=== PATIENT | female | born 1950 | race Caucasian/White ===

== ENCOUNTER 2022-11-06 09:33 | Outpatient (REF) | payer MEDICARE, BC, SELFPAY ==
--- NOTE | ~2022-11-06 | CT_ITS ---
EXAMINATION: CT HEAD WITHOUT CONTRAST CLINICAL INFORMATION: Parkinson's disease COMPARISON: None available. TECHNIQUE: Contiguous axial imaging was performed from the skull base to vertex without intravenous administration of contrast. This CT examination was performed using dose optimization techniques as appropriate, variously including the following: *Automated exposure control *Adjustment of mA and/or kV according to patient size (this includes techniques or standardized protocols for targeted exams where dose is matched to indication/reason for exam; i.e. extremities or head) *Use of iterative reconstruction technique DLP: 836 mGy-cm FINDINGS: There is no acute intra-axial, extra-axial bleed, masses or midline shift. There is no acute infarction in evolution. There is no edema. The beard to white matter difference is maintained. The lateral ventricles are symmetrical in size and configuration without enlargement. Bone windows reveal no calvarial abnormality. CT/CT head/brain wo IV con IMPRESSION: No acute intracranial and process seen.
== END 2022-11-06 09:34 | disposition home or self-care (01) ==
LOC: HO.CT 09:33
PROVIDERS: Visit Provider Internal Medicine
DX: G20 Parkinson's disease (principal)
CPT/HCPCS: 70450

== ENCOUNTER 2025-03-10 11:36 | Outpatient (AMB) | payer MEDICARE, SELFPAY ==
--- NOTE | 2025-03-10 11:45 | MHC.OFFVIS ---
Intake Visit Reasons: 6 month Allergies ampicillin (AMPICILLIN) Allergy (Mild, Unverified 03/23/20 15:28) RASH acetaminophen (From PERCOCET) Adverse Reaction (Mild, Unverified 03/23/20 15:28) nausea From PERCOCET Adverse Reaction (Mild, Uncoded 03/23/20 15:28) nausea HPI Comments Details: 74 yo woman with Parkinson disease started in 2019 with bilateral hand tremor and bradykinesia. She is presenting for comprehensive management related to her primary diagnosis of Parkinson's Disease. Her current treatment includes carbidopa/levodopa and pramipexole, though administration of carbidopa/levodopa is slightly less frequent than intended. Hallucinations present at nighttime involve sensations of dropping objects, and overall, night sleep is satisfactory. She finds daytime somnolence a challenge, being troublesome to her daily activities, potentially attributed to her medication regimen. There is a chronic history of left eye ptosis, treated previously with costly eye drops which were therefore discontinued. [facility], [facility] Medical History (Updated 03/10/25 @ 11:46 by Noe Cordero MD) Parkinson disease Multifactorial gait disorder Obesity Osteoarthritis Parkinsonism Anxiety Hypertension Degenerative disc disease, lumbar Review of Systems Const Details: - Neurologic: Reports falling asleep during the day, mild hallucinations during sleep; Denies anger issues or excessive mood changes. - Musculoskeletal: Reports leg swelling. - Sleep: Reports good sleep at night but excessive daytime sleepiness; Denies snoring. Physical Exam Neuro Other: She is alert and awake with normal spontaneity of speech fluency comprehension and affect. There was moderate left-sided ptosis. There was moderate bilateral leg edema. Assessment & Plan Assessment & Plan (1) Parkinson disease: Comment: [place] brain [place] [facility] [place]: [place] MRI LS spine at [facility] in 2021: multilevel DJD. Code(s): G20.A1 - Parkinson's disease without dyskinesia, without mention of fluctuations Category: Medical Qualifiers: Dyskinesia presence: without dyskinesia Fluctuating manifestations: with fluctuating manifestations Qualified Code(s): G20.A2 - Parkinson's disease without dyskinesia, with fluctuations Plan Impression: a: Parkinson disease b: mild benign sleep related hallucinations c: Left eye chronic ptosis d: Hypersomnia during daytime probably with underlying untreated PHYLLIS. She did not want to use a mask e: Leg edema that might be due to pramipaxole Rec: a: Carbidopa/levodopa 25/100, 4-5 times a day b: DC pramipaxole Medications: Changed From carbidopa-levodopa 25-100 mg (Sinemet) 1 tab PO QID 360 tabs 1RF To carbidopa-levodopa 25-100 mg (Sinemet) 1 tab orally 4-5 times a day; 450 tabs 1RF Coding Level of Care Code Est Pt Level 5 (84649) Diagnoses Parkinson's disease without dyskinesia, with fluctuating manifestations G20.A2 Dyskinesia presence: without dyskinesia Fluctuating manifestations: with fluctuating manifestations
--- OUTSIDE RECORDS SUMMARY | 2025-03-10 13:17 | XMS_ITS | Clinical Summary ---
Author Organization [facility] Address [address] [place] [address] Care Team Providers Care Bending Shed Worker Name Role Phone Debra Hauser MD Primary Care Provider [phone] Allergies Active Allergy Reactions Criticality Noted Date Comments Ampicillin 09/01/2023 Iodinated Contrast Media 09/01/2023 Medications Medication Sig Dispensed Refills Start Date End Date Status acetaminophen (TYLENOL EXTRA STRENGTH) 500 MG tablet Take 1 tablet (500 mg total) by mouth every 6 (six) hours as needed. 0 Active acetaminophen-codeine (TYLENOL #3) 300-30 MG per tablet Take 1 tablet by mouth daily. 0 Active carbidopa-levodopa (SINEMET) 25-100 MG per tablet Take 2 tablets by mouth 2 (two) times a day. 0 Active polyethylene glycol (MIRALAX) 17 g packet Take 17 g by mouth daily. 0 Active hydroCHLOROthiazide (HYDRODIURIL) tablet 25 mg Take 1 tablet (25 mg total) by mouth daily. 0 Active lisinopril (PRINIVIL,ZESTRIL) tablet 20 mg Take 1 tablet (20 mg total) by mouth daily. 0 Active Multiple Vitamins-Minerals (Multivitamin Women 50+) TABS Take 1 tablet by mouth daily. 0 Active omeprazole (PriLOSEC) 20 MG capsule Take 1 capsule (20 mg total) by mouth daily. 0 Active pregabalin (LYRICA) 75 MG capsule Take 1 capsule (75 mg total) by mouth 2 (two) times a day. 0 Active senna-docusate (PERICOLACE) 8.6-50 MG Take 1 tablet by mouth daily. 0 Active sertraline (ZOLOFT) 50 MG tablet Take 1.5 tablets (75 mg total) by mouth daily. 0 Active simvastatin (ZOCOR) tablet 20 mg Take 1 tablet (20 mg total) by mouth every night at bedtime. 0 Active Cholecalciferol (Vitamin D) 50 MCG (1999 UT) CAPS Take 1 capsule by mouth daily. 0 Active trospium (SANCTURA) 20 MG tablet Take 1 tablet (20 mg total) by mouth 2 (two) times a day. 0 Active Family History Medical History Relation Name Comments Cancer Mother Relation Name Status Comments Mother Social History Tobacco Use Types Packs/Day Years Used Date Smoking Tobacco: Never Smokeless Tobacco: Never Tobacco Cessation:Counseling Given: Not Answered Alcohol Use Standard Drinks/Week Comments Not Currently 0 (1 standard drink = 0.6 oz pur e alcohol) Sex and Gender Information Value Date Recorded Sex Assigned at Not on file Gender Identity Not on file Sexual Orientation Not on file Job Start Date Occupation Industry Not on file Not on file Not on file Last Filed Vital Signs Vital Sign Reading Time Taken Comments Blood Pressure 146/58 09/01/2023 11:39 AM EST Pulse 75 09/01/2023 11:39 AM EST Temperature 36.6 C (97.8 F) 09/01/2023 11:39 AM EST Respiratory Rate - - Oxygen Saturation 100% 09/01/2023 11:39 AM EST Inhaled Oxygen Concentration - - Weight 92.1 kg (203 lb) 09/01/2023 11:39 AM EST Height 162.6 cm (5' 4 ) 09/01/2023 11:39 AM EST Body Mass Index 34.84 09/01/2023 11:39 AM EST Plan of Treatment Health Maintenance Due Date Last Done Comments Hepatitis C Screening 1950 COVID-19 Vaccine (#1) 04/11/1951 Depression Screening 1964 Preventative Health Evaluation 1970 DTap / Tdap / Td (1 - Tdap) 10/11/1971 Colon Cancer Screening (Colonoscopy) 1997 Breast Cancer Screening (Mammogram) 2002 Fall Risk Assessment 2017 Osteoporosis Screening (DEXA Scan) 2017 Shingrix-Zoster Vaccine (2 o f 2) 2017 08/15/2017 Influenza Vaccine (#1) 2025 RSV Adult > 60+ Yrs or (1 - 1-dose 75+ series) 10/11/2027 Pneumococcal Vaccine Completed 05/15/2018, 11/12/2017 Hepatitis B Vaccines Aged Out No long er eligible based on patient's age to complete this topic RSV Ped < 20 months Aged Out No longe r eligible based on patient's age to complete this topic Care Teams Bending Shed Worker Relationship Specialty Start Date End Date Debra Hauser MD [address] [place] [address] [address] [place] [address] PCP - General Internal Medicine 07/30/23
--- OUTSIDE RECORDS SUMMARY | 2025-03-10 13:17 | XMS_ITS ---
Author Name [facility] Organization Unknown Care Team Organization Name Specialty Phone Email Start Date End Da te [facility] ACO 02/23/2025 [facility] Debra Hauser Primary Care 12/13/2022 02/23/20 [facility] Saba Hoffman Primary Care 05/14/2022 02/23/2024
--- OUTSIDE RECORDS SUMMARY | 2025-03-10 13:17 | XMS_ITS | Clinical Summary ---
Author Organization [address] Address [address] [place] [address] Phone Care Team Providers Care Tier In Name Role Phone Vaibhav Hauser MD Primary Care Provider [phone] Allergies Active Allergy Reactions Criticality Noted Date Comments Ampicillin 05/24/2015 Iodinated Contrast Media 11/14/2021 Other Reaction(s): Hives/Urticaria Medications acetaminophen (TYLENOL) 500 mg tablet Take 1 Tablet by mouth 2 times daily as needed for Other (..). 3 Active acetaminophen- codeine (TYLENOL #3) 300-30 mg per tablet Take 1 Tablet by mouth as needed. 3 Active carbidopa-levo dopa (SINEMET) 25-100 mg per tablet Take 5 tablets by mouth 5 (five) times a day. 3 Active cholecalcifero l (VITAMIN D-3) 50 mcg (2,000 unit) capsule Take 1 capsule by mouth daily. 1 Active multivit-min/i jono/FA/vit K/lut (MULTIVITAMIN WOMEN 50 PLUS ORAL) Take 1 Tab by mouth daily. 9 Active pregabalin (LYRICA) 75 mg capsule Take 1 Capsule by mouth 2 times daily. 2 Active trospium (SANCTURA) 20 mg tablet Take 1 Tablet by mouth 2 times daily. 3 Active sertraline (ZOLOFT) 50 mg tablet TAKE 1.5 TABLETS BY MOUTH DAILY 135 tablet 3 4 Active omeprazole (PriLOSEC) [address] capsule TAKE ONE CAPSULE BY MOUTH EVERY DAY 90 capsule 3 4 Active senna-docusate (PERICOLACE) 8.6-50 mg per tablet Take 1 tablet by mouth 1 (one) time each day. 90 tablet 3 4 Active pramipexole (MIRAPEX) 0.25 mg tablet Take 1 tablet (0.25 mg total) by mouth 3 (three) times a day. Active hydroCHLOROthi azide (HYDRODIURIL) 25 mg tablet Take 1 tablet (25 mg total) by mouth 1 (one) time each day. 90 tablet 1 5 Active simvastatin (ZOCOR) 20 mg tablet TAKE ONE TABLET BY MOUTH EVERY DAY 90 tablet 1 5 Active lisinopriL (PRINIVIL,ZEST RIL) 20 mg tablet TAKE ONE TABLET BY MOUTH EVERY DAY 90 tablet 1 5 Active lisinopriL (PRINIVIL,ZEST RIL) 20 mg tablet Take 1 tablet (20 mg total) by mouth 1 (one) time each day. 90 tablet 1 5 02/25/20 25 Discontinued Active Problems Problem Noted Date Diagnosed Date Stage 3a chronic kidney disease ([facility] V24, [facility] V28) 12/23/2024 Assessment & Plan (12/23/2024 11:19 AM EDT): Parkinson's disease [place] [place] [facility] [place] 1 08/11/2023 Assessment & Plan (12/23/2024 11:19 AM EDT): Morbid obesity with BMI of 4 0.0-44.9, adult [place] [place] [place] [facility] [place] 04/23/2024 Assessment & Plan (12/23/2024 11:19 AM EDT): OAB (overactive bladder) 06/13/2022 Assessment & Plan (12/23/2024 11:19 AM EDT): Anxiety and depression 09/14/2021 Assessment & Plan (12/23/2024 11:19 AM EDT): Hip pain, chronic, left 04/27/2020 Pain of left hip joint 03/07/2020 Elevated LFTs 05/15/2018 Assessment & Plan (12/23/2024 11:19 AM EDT): Orders: CBC and differential; Future Basic metabolic panel; Future Magnesium; Future Fatigue 05/15/2018 Hyperlipidemia 11/12/2017 Assessment & Plan (12/23/2024 11:19 AM EDT): Orders: CBC and differential; Future Basic metabolic panel; Future Magnesium; Future Hypertension 05/13/2017 Assessment & Plan (12/23/2024 11:19 AM EDT): Orders: CBC and differential; Future Basic metabolic panel; Future Magnesium; Future Hearing loss 11/16/2013 Encounters Date Type Department Care Team Description 12/23/2024 11:00 AM EDT Office Visit Internal Medicine - [address] [phone] Vaibhav Hauser MD Primary hypertension (Primary Dx); Elevated LFTs; Mixed hyperlipidemia; OAB (overactive bladder); Morbid obesity with BMI of 40.0-44.9, adult ([facility] V24, [facility] V28); Chronic kidney disease (CKD) stage G1/A2, glomerular filtration rate (GFR) equal to or greater than 90 mL/min/1.73 square meter and albuminuria creatinine ratio between 30-299 mg/g; Parkinson's disease, unspecified whether dyskinesia present, unspecified whether manifestations fluctuate ([facility] V24, [facility] V28); Anxiety and depression; Stage 3a chronic kidney disease (CMS/HCC V24, CMS/[facility] V28); Encounter for subsequent annual wellness visit (AWV) in Medicare patient; Need for vaccination against Streptococcus pneumoniae 12/22/2024 Telephone Internal Medicine - [address] [phone] Kwame Hidalgo MA from Last 3 Months Immunizations Name Administration Dates Next Due Pneumococcal conjugate 13 va lent (Prevnar 13, PCV13) 2mo and older 11/12/2017 Pneumococcal conjugate 20 va lent (Prevnar 20, PCV 20) 2mo and older 12/05/2023 Pneumococcal polysaccharide 23 valent (Pneumovax 23) 2yo and older 05/15/2018 Tdap Tetanus diptheria acell ular pertussis (Boostrix; Adacel) 7yo and older 12/23/2024 Zoster recombinant (Shingrix) 19yo and older 03/2018 Surgical History Surgery Date Site/Laterality Comments COLONOSCOPY PROCEDURE: HISTORICAL COLONOSCOPY HYSTERECTOMY PROCEDURE: HISTORICAL HYSTERECTOMY HERNIA REPAIR N/A PROCEDURE: HISTORICAL HERNIA REPAIR/ING KNEE ARTHROSCOPY Right PROCEDURE: SD ARTHROSCOPY AID TX SPINE&/FX KNEE W/O FIXJ; COMMENT: x 3 HERNIA REPAIR PROCEDURE:HERNIA REPAIR HYSTERECTOMY PROCEDURE:HYSTERECTOMY KNEE ARTHROSCOPY Right PROCEDURE:KNEE ARTHROSCOPY Medical History Medical History Date Comments Hearing loss 11/16/2013 DX:Hearing loss Hyperlipidemia 11/12/2017 DX:Hyperlipidemi a Hypertension 05/13/2017 DX:Hypertension Morbid obesity with body mas s index (BMI) of 40.0 to 49.9 ([facility] V24, [facility] V28) 09/25/2016 DX:Morbid obesity with body mass index (BMI) of 40.0 to 49.9 ([facility]) Elevated LFTs 05/15/2018 DX:Elevated LFTs Fatigue 05/15/2018 DX:Fatigue Anxiety and depression DX:Anxiet y and depression OAB (overactive bladder) DX:OAB (overactive bladder) Hiatal hernia DX:Hiatal hernia Hypertension DX:Hypertension Family History Medical History Relation Name Comments Parkinson's Disease Father Stroke Father Cancer Mother Stroke Sister Relation Name Status Comments Father (Age 85) Mother Sister Social History Tobacco Use Types Packs/Day Years Used Date Smoking Tobacco: Never Smokeless Tobacco: Never Tobacco Cessation:Counseling Given: Not Answered Alcohol Use Standard Drinks/Week Comments Not Currently 0 (1 standard drink = 0.6 oz pur e alcohol) Housing Instability Answer Date Recorde d Are you worried that in the next 2 months you may not have stable housing? Patient declined 06/09/2024 Food Access & Nutrition Answer Date Rec orded Do you have access to a vari ety of food including fruits and vegetables? Yes 06/09/2024 Access to Healthcare Answer Date Record ed Within the last 3 months, ho w many times did you visit the emergency department for your medical care? 0 06/09/2024 Health Literacy Answer Date Recorded How often do you need to hav e someone help you when you read instructions, pamphlets, or other written material from your doctor or pharmacy? Never 06/09/2024 Caregiver: How often do you need to have someone help you when you read instructions, pamphlets, or other written material from your doctor or pharmacy? Not on file 06/09/2024 Financial Risk Answer Date Recorded How hard is it for you to pa y for the very basics like food, housing, medical care, and air conditioning / heating? Patient declined 06/09/2024 Transportation Answer Date Recorded Has the lack of transportati on kept you from meetings, work, or from getting things needed for daily living? No Has the lack of transportati on kept you from medical appointments or from getting medications? No 06/09/2024 Social Isolation Answer Date Recorded How often do you feel lonely or isolated from those around you? Patient declined 06/09/2024 Food Risk Answer Date Recorded Within the past 12 months we worried whether our food would run out before we got money to buy more. Never true 06/09/2024 Within the past 12 months th e food we bought just didn't last and we didn't have money to get more. Never true 06/09/2024 Dependent Care Answer Date Recorded Do you need help finding or paying for care for your loved ones. For example, child care centre manager or elderly care for an older adult? Patient declined 06/09/2024 Education Answer Date Recorded Do you think completing more education or training, like finishing a GED, going to college, or learning a trade, would be helpful for you? Patient declined 06/09/2024 Employment and Income Answer Date Recor ded During the last four weeks, have you been actively looking for work? No 06/09/2024 Living Situation Answer Date Recorded What is your living situation? 1 08/10/2023 Comments Unknown Sex and Gender Information Value Date Recorded Sex Assigned at Female 08/04/2024 2:35 PM EST Legal Sex Female 8:25 PM EST Gender Identity Female 08/04/2024 2:35 PM EST Sexual Orientation Straight 08/04/2024 2: 35 PM EST Obstetrics History Last Filed Vital Signs Vital Sign Reading Time Taken Comments Blood Pressure 136/84 12/23/2024 10:53 AM EDT Pulse 75 12/23/2024 10:53 AM EDT Temperature 36.6 C (97.8 F) 12/23/2024 10:53 AM EDT Respiratory Rate - - Oxygen Saturation 97% 12/23/2024 10:53 AM EDT Inhaled Oxygen Concentration - - Weight 117 kg (258 lb 9.6 oz) 12/23/2024 10:53 A M EDT Height 162.6 cm (5' 4 ) 06/10/2024 11:06 AM EST Body Mass Index 44.39 06/10/2024 11:06 AM EST Plan of Treatment Upcoming Encounters Date Type Department Care Team (Late st Contact Info) Description 03/17/2025 1:30 PM EDT Consult Nephrology [facility] [address] [place] [phone] Guilherme De Oliveira MD [address] [facility] [address] [place] [phone] 05/31/2025 11:15 AM EST Office Visit Internal Medicine - [place] [address] [facility] [facility] [address] [place] [phone] Vaibhav Hauser MD [address] [place] [address] Health Maintenance Due Date Last Done Comments RSV Immunization Adult Patients (1 - Risk 60-74 years 1-dose series) 2012 Breast Cancer Screening 12/21/2020 12/21/2018, 12/19 Colorectal Cancer Screening: Colonoscopy 06/10/2024 Osteoporosis Screening (Bone Density Screening) 06/10/2024 COVID-19 Vaccine (5 - Pfizer risk season) 2025 05/20/2024, 05/25/2021, 08/01/2020, Additional history exists Influenza Vaccine (#1) 2025 05/20/2024 Social Influencers of Health Screening 06/09/2025 06/09/2024 Falls Risk Assessment 06/10/2025 06/10/2024, 024 Hypertension/CHF/CAD Annual BMP Blood Test 12/23/2025 12/23/2024, 06/10/2024, 12/05/2023, Additional history exists Medicare Annual Wellness Visit 12/23/2025 12/23/2024 Cholesterol Screening (Lipid Panel) 06/10/2029 06/10/2024, 09/26/2022 DTaP,Tdap,and Td Vaccines (2 - Td or Tdap) 12/23/2034 12/23/2024 Zoster Vaccines Completed 12/03/2017, 08/15/2017 Hepatitis C Screening Completed 05/15/2018 Pneumococcal Vaccine: 50+ Years Completed 12/05/2023, 05/15/2018, 11/12/2017 Depression Screening Completed 12/23/2024, 12/05/19 24 HIB Vaccines Aged Out No longer eligi ble based on patient's age to complete this topic HPV Vaccines Aged Out No longer eligi ble based on patient's age to complete this topic Hepatitis A Vaccines Aged Out No long er eligible based on patient's age to complete this topic Hepatitis B Vaccines Aged Out No long er eligible based on patient's age to complete this topic IPV Vaccines Aged Out No longer eligi ble based on patient's age to complete this topic MMR Vaccines Aged Out No longer eligi ble based on patient's age to complete this topic Meningococcal ACWY Vaccine Aged Out N o longer eligible based on patient's age to complete this topic Meningococcal B Vaccine Aged Out No l onger eligible based on patient's age to complete this topic RSV Immunization Patients Under 20 months Aged Out No longer eligible based on patient's age to complete this topic Varicella Vaccines Aged Out No longer eligible based on patient's age to complete this topic Procedures Procedure Name Priority Date/Time Associated Diagnosis Comments CBC WITH AUTO DIFFERENTIAL Routine 12/23/2024 11:24 AM EDT Elevated LFTs Mixed hyperlipidemia Primary hypertension MAGNESIUM Routine 12/23/2024 11:24 AM EDT Elevated LFTs Mixed hyperlipidemia Primary hypertension BASIC METABOLIC PANEL Routine 12/23/2024 11:24 AM EDT Elevated LFTs Mixed hyperlipidemia Primary hypertension CBC AND DIFFERENTIAL Routine 12/23/2024 11:24 AM EDT Elevated LFTs Mixed hyperlipidemia Primary hypertension LIPID PANEL WITH REFLEX TO DIRECT LDL Routine 06/10/2024 11:42 AM EST Elevated LFTs Mixed hyperlipidemia Primary hypertension Anxiety and depression DEPRESSION SCREENING Routine 12/05/2023 FALLS RISK ASSESSMENT Routine 12/05/2023 GEOVANI SCREENING DIGITAL Routine 12/21/2018 9:00 AM EDT Encounter for screening mammogram for malignant neoplasm of breast HEPATITIS C SCREENING Routine 05/15/2018 from Last 3 Months or Most Recently Relevant to Health Maintenance Results * (ABNORMAL) CBC auto differential (12/23/2024 11:24 AM EDT) WBC 7.1 4.8 - 10.8 K/mcL LAB HEMETOLOGY METHOD 12/23/2024 2:04 PM EDT [facility] RBC 4.00 3.80 - 4.80 M/mcL LAB HEMETOLOGY METHOD 12/23/2024 2:04 PM EDT [facility] Hemoglobin 11.8 11.5 - 16.0 g/dL LAB HEMETOLOGY METHOD 12/23/2024 2:04 PM EDT [facility] Hematocrit 38.2 35.0 - 47.0 % LAB HEMETOLOGY METHOD 12/23/2024 2:04 PM EDT [facility] MCV 96.2 79.0 - 98.0 FL LAB HEMETOLOGY METHOD 12/23/2024 2:04 PM EDT [facility] MCH 29.7 27.0 - 32.0 pcg LAB HEMETOLOGY METHOD 12/23/2024 2:04 PM EDT [facility] MCHC 30.9(L) 32.0 - 37.0 g/dL LAB HEMETOLOGY METHOD 12/23/2024 2:04 PM EDT [facility] RDW 13.4 11.0 - 15.0 % LAB [facility]OLOGY [facility] 108(L) 130 - 400 K/mcL LAB HEMETOLOGY METHOD 12/23/2024 2:04 PM [facility] MPV 11.4(H) 7.0 - 11.0 FL LAB HEMETOLOGY METHOD 12/23/2024 2:04 PM [facility] NRBC 0.0 <1.0 % LAB HEMETOLOGY METHOD [facility]/23[facility]24 [facility] NRBC Absolute 0.00 <0.10 K/mcL LAB HEMETOLOGY METHOD 12/23/2024 2:04 PM [facility] Neutrophils Relative 73.1 % LAB HEMETOLOGY METHOD 12/23/2024 2:04 PM [facility] Lymphocytes Relative 16.0 % LAB HEMETOLOGY METHOD 12/23/2024 2:04 PM [facility] Monocytes Relative 8.4 % LAB HEMETOLOGY METHOD 12/23/2024 2:04 PM [facility] Eosinophils Relative 1.8 % LAB HEMETOLOGY METHOD 12/23/2024 2:04 PM [facility] Basophils Relative 0.6 % LAB HEMETOLOGY METHOD 12/23/2024 2:04 PM [facility] Immature Granulocytes Relative 0.1 % LAB HEMETOLOGY METHOD 12/23/2024 2:04 PM [facility] Neutrophils Absolute 5.16 1.50 - 7.00 K/mcL LAB HEMETOLOGY METHOD 12/23/2024 2:04 PM [facility] Lymphocytes Absolute 1.13 1.00 - 5.00 K/mcL LAB HEMETOLOGY METHOD 12/23/2024 2:04 PM [facility] Monocytes Absolute 0.59 0.20 - 1.00 K/mcL LAB HEMETOLOGY METHOD 12/23/2024 2:04 PM EDT [facility] Eosinophils Absolute 0.13 0.00 - 0.50 K/[facility] LAB HEMETOLOGY METHOD 12/23/2024 2:04 PM EDT [facility] Basophils Absolute 0.04 0.00 - 0.20 K/[facility] LAB HEMETOLOGY METHOD 12/23/2024 2:04 PM EDT [facility] Immature Granulocytes Absolute 0.01 0.00 - 0.03 K/[facility] LAB HEMETOLOGY METHOD 12/23/2024 2:04 PM EDT [facility] Blood Venous blood specimen / Unknown Venipuncture / Unknown 12/23/2024 11:24 AM EDT 12/23/2024 11:24 AM EDT us Vaibhav Hauser MD LAB BLOOD ORDERABLES Final Res ult Performing Organization Address City/[facility]/ZIP Co de Phone Number [facility] [address] [place] [address], [place] [phone] * Magnesium (12/23/2024 11:24 AM EDT) [facility] Magnesium 2.3 1.9 - 2.6 mg/dL LAB CHEMISTRY METHOD 12/23/2024 3:09 PM EDT [facility] Blood Venous blood specimen / Unknown Venipuncture / Unknown 12/23/2024 11:24 AM EDT 12/23/2024 11:24 AM EDT us Vaibhav Hauser MD LAB BLOOD ORDERABLES Final Res ult [facility] [address] [place] [address], [place] [phone] * (ABNORMAL) Basic metabolic panel (12/23/2024 11:24 AM EDT) Pathologist [facility] Sodium 141 133 - 145 mmol/L LAB CHEMISTRY METHOD 12/23/2024 3:09 PM [facility] Potassium 4.4 3.5 - 5.5 mmol/L LAB CHEMISTRY METHOD 12/23/2024 3:09 PM [facility] Chloride 105 96 - 110 mmol/L LAB CHEMISTRY METHOD 12/23/2024 3:09 PM [facility] CO2 27 21 - 32 mmol/L LAB CHEMISTRY METHOD 12/23/2024 3:09 PM [facility] Anion Gap 9 3 - 11 LAB CHEMISTRY METHOD 12/23/2024 3:09 PM [facility] Glucose 96 70 - 100 mg/dL LAB CHEMISTRY METHOD 12/23/2024 3:09 PM [facility] BUN 41(H) 5 - 25 mg/dL LAB CHEMISTRY METHOD 12/23/2024 3:09 PM [facility] Creatinine 1.42(H) 0.50 - 1.10 mg/dL LAB CHEMISTRY METHOD 12/23/2024 3:09 PM [facility] eGFR 39(L) >=60 mL/min/1. 73m2 LAB CHEMISTRY METHOD 12/23/2024 3:09 PM [facility] Comment:Calculation based on the Chronic Kidney Disease Epidemiology Collaboration (CKD-EPI) equation refit without adjustment for race. BUN/Creatinine Ratio 28.9 LAB CHEMISTRY METHOD 12/23/2024 3:09 PM [facility] Calcium 9.0 8.5 - 10.5 mg/dL LAB CHEMISTRY METHOD 12/23/2024 3:09 PM [facility] Blood Venous blood specimen / Unknown Venipuncture / Unknown 12/23/2024 11:24 AM EDT 12/23/2024 11:24 AM EDT us Vaibhav Hauser MD LAB BLOOD ORDERABLES Final Res ult [facility] [address] [place] [address], [place] [phone] * (ABNORMAL) Lipid panel with reflex to direct LDL (06/10/2024 11:42 AM EST) Cholesterol 146 0 - 200 mg/dL LAB CHEMISTRY METHOD 06/10/2024 2:54 PM EST [facility] Triglycerides 173(H) 0 - 150 mg/dL LAB CHEMISTRY METHOD 06/10/2024 2:54 PM EST [facility] HDL 48 >=40 mg/dL LAB CHEMISTRY METHOD 06/10/2024 2:54 PM EST [facility] LDL Calculated 63 0 - 100 mg/dL LAB CHEMISTRY METHOD 06/10/2024 2:54 PM EST [facility] VLDL Cholesterol Jerel 34.6 mg/dL LAB CHEMISTRY METHOD 06/10/2024 2:54 PM EST [facility] Non HDL Chol. (LDL+VLDL) 98 <145 mg/dL LAB CHEMISTRY METHOD 06/10/2024 2:54 PM EST [facility] Chol/HDL Ratio 3.0 0.0 - 4.4 LAB CHEMISTRY METHOD 06/10/2024 2:54 PM EST [facility] Blood Venous blood specimen / Unknown Venipuncture / Unknown 06/10/2024 11:42 AM EST 06/10/2024 11:42 AM EST us Vaibhav Hauser MD LAB BLOOD ORDERABLES Final Res ult [facility] [address] [place] [address], [place] [phone] * Falls Risk Assessment (12/05/2023) Falls Risk Assessment Abstracted us Historical Provider HEALTH MAINTENANCE Final Result * Depression Screening (12/05/2023) Depression Screening Abstracted us Historical Provider HEALTH MAINTENANCE Final Result * [facility] SCREENING DIGITAL (12/21/2018 9:00 AM EDT) Anatomical Region Laterality Modality Mammography 12/21/2018 7:43 AM EDT Narrative 12/21/2018 9:00 AM EDT [facility] Diagnostic Imaging Department [address] [place] [id number] Patient: LAIX RALPH Dede /Age/Sex: 1950 - 68 - F Unit#: [id number] Location/Status: [facility] CLI Mnemonic/Ordering Site: [facility] Ordering Physician: VAIBHAV HAUSER MD [facility] Screening Digital - 12/21/18807 INDICATION: SCREENING COMPARISON: [facility] mammograms dating back to 12/02/2013 TECHNIQUE: CC and MLO views of the breasts were obtained, using full field digital mammography with 3D tomosynthesis views in the MLO projection. Computer aided detection with the [employer] 7.2-H was employed. FINDINGS: The breasts contain scattered fibroglandular tissues. There is a developing focal asymmetry within the 6:00 axis of the left breast which is best visualized on the conventional views measuring 5 mm in size. There is no evidence for developing mass on the right. No suspicious microcalcifications, or areas of architectural distortion are identified within either breast. Rare benign-appearing breast calcifications are present bilaterally. There are no secondary signs of breast malignancy. IMPRESSION: Developing focal asymmetry within the left breast best visualized on the conventional views. Further evaluation to include full field 90 degree lateral and spot compression views of the left breast in the CC and MLO projections with ultrasound to follow the finding persists. No specific mammographic evidence of breast malignancy or adverse interval change on the right. Lack of an imaging correlate should not deter or delay biopsy of a clinically significant palpable finding. BI-RADS - Category 0 - Incomplete needs additional imaging evaluation. [id number], [id number] ([id number] / [id number]) , [id number] Dictating Physician: MONA FARMER MD Electronically Signed by: MONA FARMER MD Dic Date/Time: 12/21/18851 Sign date/Time: 12/21/18899 Procedure Note Mona Farmer - 06/25/2022 [facility] Diagnostic Imaging Department [address] [place] [address] Patient: ALIX RALPH Dede /Age/Sex: 1950 - 68 - F Unit#: [id number] [facility]ing Site: [facility] Ordering Physician: VAIBHAV HAUSER MD [facility] Screening Digital - 12/21/18807 INDICATION: SCREENING COMPARISON: [facility] mammograms dating back to 12/02/2013 TECHNIQUE: CC and MLO views of the breasts were obtained, using full field digital mammography with 3D tomosynthesis views in the MLO projection. Computer aided detection with the iCAD SecondLook 7.2-H was employed. FINDINGS: The breasts contain scattered fibroglandular tissues. There is a developing focal asymmetry within the 6:00 axis of the leftbreast which is best visualized on the conventional views measuring 5 mm in size.There is no evidence for developing mass on the right. No suspicious microcalcifications, or areas of architectural distortionare identified within either breast. Rare benign-appearing breastcalcifications are present bilaterally. There are no secondary signs of breastmalignancy. IMPRESSION: Developing focal asymmetry within the left breast bestvisualized on the conventional views. Further evaluation to include full field 90degree lateral and spot compression views of the left breast in the CC and MLO projections with ultrasound to follow the finding persists. No specific mammographic evidence of breast malignancy or adverseinterval change on the right. Lack of an imaging correlate should not deter or delay biopsy of aclinically significant palpable finding. BI-RADS - Category 0 - Incomplete needs additional imaging evaluation.[id number], [id number] ([id number] / [id number]) , [id number] Dictating Physician: MONA FARMER MD Electronically Signed by: MONA FARMER MD Dic Date/Time: 12/21/18 0852 Sign date/Time: 12/21/18 0900 Vaibhav Hauser MD IMG BI PROCEDURES Final Result * Hepatitis C Screening (05/15/2018) Hepatitis C Screening Abstracted Historical Provider HEALTH MAINTENANCE Final Result from Last 3 Months or Most Recently Relevant to Health Maintenance Insurance MEDICARE MEDICARE [facility] Care Teams Tier In Relationship Specialty Start Date End Date Vaibhav Hauser MD [address] [id number] PCP - General Internal Medicine 03/24/19
--- OUTSIDE RECORDS SUMMARY | 2025-03-10 13:17 | XMS_ITS | Patient Health Record ---
Author Organization [facility] Address [address] [place] [id number] Care Team Providers Care Technical Project Manager Name Role Phone VAIBHAV MISHRA Primary Care Provider TAWNYA Vargas Unavailable [phone] Allergies Allergen (clinical drug ingredient) Drug/Non Drug Allergy documented on EMR Reaction Allergy Type Onset Date Status IV CONTRAST (uncoded) UNSURE Allergy Active PENICILLIN Skin Rash Drug Allergy Active ampicillin AMPICILLIN Skin Rash Drug Allergy Activ e Reason For Referral No Information Medications Medication SIG (Take, Route, Frequency, Duration) Notes Start Date End Date Status hydroCHLOROthiazide 25mg 1 ORAL daily; Duration: -3 Camron-MJ 07/24/2011 Active Simvastatin 5MG 1 ORAL daily; Duration: -3 Camron-MJ 011 Active Lipitor 10MG 1 ORAL daily; Duration: -3 Camron-MJ 06/07/2011 Active Ibuprofen 600 MG 1 tablet Orally as needed Active Problems Problem Type SNOMED Code ICD Code Onset Dates Problem Status W/U Status Risk Notes Problem Urge incontinence of urine (00410103) Urge incontinence (N39.41) Active confirmed Problem Herniation of rectum into vagina (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) Rectocele (N81.6) Active confirmed Problem Hyperlipidemia (20091138) Other and unspecified hyperlipidemia (272.4) Active confirmed Major Problem Obesity (483604192) Obesity, unspecified (278.00) Active confirmed Major Problem Benign essential hypertension (6667998) Essential hypertension, benign (401.1) Active confirmed Major Problem Menopausal symptom (71083019) Symptomatic menopausal or female climacteric states (627.2) Active confirmed Major Problem Heart murmur (937654641) Undiagnosed cardiac murmurs (785.2) Active confirmed Major Plan Of Treatment Pending Test Test Name Order Date Bone Density 07/12/2016 Urinalysis 01/01/2022 BONE DENSITY 07/06/2015 MM Digital Mammo Screening 07/12/2016 Future Test Test Name Order Date MM Digital Mammo Screening 07/06/2015 Insurance Providers Payer Name Payer Address Payer Phone Subscriber Number Group Number Insured Name Patient Relationship to Insured Coverage Start Date Coverage End Date MEDICARE [address] MEENU GALAVIZ [id number] ALIX RALPH Self - patient is the insured [facility] [address] [place] [address] [id number] ALIX RALPH Self - patient is the insured Medical (General) History Medical History History ICD Code Excessive and frequent menstruation with regular cycle N92.0 Postmenopausal bleeding N95.0 Submucous leiomyoma of uterus D25.0 Menopausal and female climacteric states N95.1 Essential (primary) hypertension I10 Other obesity E66.8 Cardiac murmur, unspecified R01.1 Other hyperlipidemia E78.4 Surgical History Surgery Date(Month/Year) EVA/BSO (fibroids) 2011 Incisional Hernia repair x 2, last in 13 Knee surgery Hospitalization History Reason Date(Month/Year) 2 Vaginal Deliveries See Surgical Hx
== END 2025-03-10 11:56 | disposition home or self-care (01) ==
LOC: HO.HSM 11:37
PROVIDERS: PCP Internal Medicine; Referring Provider Internal Medicine; Visit Provider Psychiatry & Neurology Neurology
DX: G20.A2 Parkinson's disease without dyskinesia, with fluctuations (principal)
CPT/HCPCS: 99214

== ENCOUNTER → 2025-03-10 11:36 | Outpatient (BNVA) | payer MEDICARE, SELFPAY | PROVIDERS: PCP Internal Medicine; Referring Provider Internal Medicine; Visit Provider Psychiatry & Neurology Neurology | DX: G20.A2 Parkinson's disease without dyskinesia, with fluctuations (principal) | CPT/HCPCS: 99212 ==